=== PATIENT | female | born 1965 | race African-American/Black ===

== ENCOUNTER 2017-07-25 00:07 | Inpatient (IN) | payer OTHER, SELFPAY ==
[2017-07-25] MEDS ORDERED: Midazolam HCl 2 mg/2 ml Vial ONE ×2 (01:48→08:57)
[2017-07-25] MEDS ORDERED: Morphine 4 MG/ML VIAL ONE ×3 (01:48→09:50)
[2017-07-25 01:58] LABS: #Basophils 0.1 thou/uL (0.0-0.2); #Eosinphils 0.1 thou/uL (0.0-0.7); #Lymphocytes 1.2 thou/uL (1.20-3.40); #Monocytes 0.5 thou/uL (0.11-0.59); #Neutrophils 6.3 thou/uL (1.40-6.50); %Eosinophils 1.7 % (0.0-10.0); %Lymphocytes 14.1 % (21.0-51.0); %Monocytes 5.7 % (0.0-10.0); %Neutrophils 77.5 % (42.0-75.0); Hemoglobin 12.7 g/dL (12.0-16.0); Mean Corpuscular HGB CONC 34.1 g/dL (32.0-36.0); Mean Corpuscular Volume 91.1 fl (81.0-99.0); Mean Platelet Volume 6.8 fL (7.4-10.4); Platelet Count 307 thou/uL (130-400); RBC Distribution Width 12.8 % (11.5-14.5); White Blood Cell (WBC) Count 8.2 thou/uL (4.8-10.8)
[2017-07-25 02:04] LABS: PTT 28.6 SEC (22.9-36.1); Prothrombin Time 12.9 SEC (12.0-14.7)
[2017-07-25 02:16] LABS: ALT (SGPT) 50 U/L (8-55); AST (SGOT) 42 U/L (5-34); Alkaline Phosphatase 72 U/L (40-150); Anion Gap 18 mmol/L (10-20); BUN (Urea Nitrogen) 12 mg/dL (9.8-20.1); Bilirubin, Total Less than 0.2 mg/dL (0.2-1.2); Calc. Creatinine Clearance 0 mL/min (70-130); Calcium 9.6 mg/dL (7.8-10.44); Carbon Dioxide 22 mmol/L (22-29); Chloride 106 mmol/L (98-107); Estimated GFR-MDRD Greater than 90; Globulin 3.8 g/dL (2.4-3.5); Glucose 76 mg/dL (70-105); Potassium 4.3 mmol/L (3.5-5.1); Protein, Total 7.8 g/dL (6.0-8.3); Sodium 142 mmol/L (136-145)
[2017-07-25] MEDS ORDERED: Morphine 4 MG/ML VIAL SLOW IVP PRN (05:09)
[2017-07-25] MEDS ORDERED: Sodium Chloride 0.9% 1,000 ML IV SCH (05:11)
[2017-07-25 06:50] VITALS: BMI 36.6
[2017-07-25] MEDS ORDERED: FLU VACC QS2017-18 36 mo. & older 0.5 ML SYRINGE IM ONE (07:00)
--- NOTE | 2017-07-25 07:31 | CON ---
DATE OF CONSULTATION: 07/25/2017 CONSULTING PHYSICIAN: Dr. Bari Foster HISTORY OF PRESENT ILLNESS: We were asked to see patient via the ER and Trauma. The patient was in her normal state of health last night when she was walking down the stairs, she slipped, heard a loud pop in her right lower extremity and had excruciating pain from that point on. She was unable to wa lk. She has had full sensations in that foot since. She did break her distal tibia. No loss of con sciousness, did not hurt or hit anything else in her fall. PAST MEDICAL HISTORY: Positive for hypertension, cholesterol, some right breast CA with mastectomy a nd lymphedema surgeries, right wrist fracture repaired, cyst removal right breast, right breast CA wi th mastectomy and lumpectomy. PSYCHOLOGIC HISTORY: Includes some mild depression. SOCIAL HISTORY: She lives at home. No alcohol, nicotine and drug use. ALLERGIES: No known drug allergies. CURRENT MEDICATIONS: Ferrous sulfate, hydrochlorothiazide, mirtazapine and a cholesterol medication she cannot recall. FAMILY HISTORY: Noncontributory. REVIEW OF SYSTEMS: Healthy other than hypertension, cholesterol. She has no chest pain or shortness of breath. No bowel or bladder issues. The rest of review of systems is negative other than the ri ght lower extremity pain. PHYSICAL EXAMINATION: GENERAL: Well-nourished female resting in bed in no acute distress. Speech clear. Affect pleasant. Answers questions appropriately, is alert and oriented x3. HEENT: Normal exam. NECK: Supple, trachea midline. EXTREMITIES: Moves upper extremities well. Lower extremities; both lower extremities have a little bit of fluid retention, right a little more due to the swelling than the left. She is able to move h er toes and has good sensations to bilateral lower extremities. Right lower extremity is currently s plinted. ASSESSMENT: Fall with ensuing right distal tibial fracture. PLAN: We will keep her n.p.o., plan on getting her to the OR today for ORIF of the right tibia. Naima redman on a nail. I have explained the procedure to the patient. She understands risks and benefits and she is amenable to go forth with surgery.
--- NOTE | 2017-07-25 07:46 | RAD ---
2 VIEWS RIGHT TIBIA AND FIBULA: Date: 07/24/17 HISTORY: Fall. FINDINGS: AP and lateral views right tibia and fibula demonstrate a spiral, posteriorly angulated fracture of t he distal shaft of the right tibia and fibula. The fibular fracture is comminuted and extends into th e distal metaphyseal region of the right fibula. IMPRESSION: Spiral distal tibial diaphyseal and comminuted distal metadiaphyseal right fibula fractures. POS: [facility]
[2017-07-25] MEDS ORDERED: CEFAZOLIN/Water 2 GM/20 ML SYRINGE SLOW IVP SCH (08:00)
[2017-07-25] MEDS ORDERED: Fentanyl 100 MCG/2 ML VIAL ONE ×3 (08:57→13:27)
[2017-07-25] MEDS ORDERED: PROPOFOL 200 MG/20 ML VIAL ONE (09:53)
[2017-07-25] MEDS ORDERED: Lidocaine 1% PF 5 ML VIAL ONE (09:53)
[2017-07-25] MEDS ORDERED: Ketorolac Tromethamine 30 MG/ML VIAL ONE (09:53)
[2017-07-25] MEDS ORDERED: Ondansetron HCl/PF 4 MG/2 ML Vial ONE (09:53)
[2017-07-25] MEDS ORDERED: Glycopyrrolate 0.2 MG/ML 5 ML SYRINGE ONE (09:53)
[2017-07-25] MEDS ORDERED: CEFAZOLIN/Water 2 GM/20 ML SYRINGE ONE (10:49)
--- NOTE | 2017-07-25 10:58 | RAD ---
2 VIEWS RIGHT TIBIA AND FIBULA: Date: 07/25/17 HISTORY: Tibial and fibular fractures. FINDINGS: Comparison made to previous exam from earlier in the day on 07/25/17 Images demonstrates status post casting of the distal tibial and fibular fractures. There is some dec reased posterior angulation of the distal fracture fragments post casting. IMPRESSION: Status post casting of distal tibial and fibular fractures. POS: [facility]
[2017-07-25] MEDS ORDERED: Ondansetron HCl/PF 4 MG/2 ML Vial IVP PRN ×2 (13:10→13:34)
[2017-07-25] MEDS ORDERED: Dextrose 5% in Water 1,000 ML IV PRN (13:10)
[2017-07-25] MEDS ORDERED: hydrALAZINE 20 MG/ML VIAL SLOW IVP PRN (13:10)
[2017-07-25] MEDS ORDERED: Dextrose 50% Abboject 50 ML SYRINGE SLOW IVP PRN (13:10)
[2017-07-25] MEDS ORDERED: Ondansetron ODT 4 MG TAB PO PRN (13:10)
[2017-07-25] MEDS ORDERED: Morphine 2 MG/ML SYRINGE SLOW IVP PRN (13:34)
[2017-07-25] MEDS ORDERED: Promethazine HCl 25 MG/ML VIAL IM PRN (13:34)
[2017-07-25] MEDS ORDERED: Promethazine HCl 25 MG/ML VIAL SLOW IVP PRN (13:34)
--- NOTE | 2017-07-25 13:42 | RAD ---
SIX INTRAOPERATIVE VIEWS RIGHT TIBIA AND FIBULA: Date: 07/25/17 HISTORY: Open reduction and internal fixation. FINDINGS: Six intraoperative images obtained and demonstrate open reduction and internal fixation of distal rig ht tibial fracture, as well as distal fibular fractures. Intramedullary chinyere, screws, and plates are i n good position. IMPRESSION: Open reduction and internal fixation distal right tibial and fibular fractures. POS: [facility]
[2017-07-25] MEDS ORDERED: Morphine 5 mg/5 ml in 0.9% NaCl/PF SYRINGE SLOW IVP PRN (13:45)
--- NOTE | 2017-07-25 14:34 | HP ---
DATE OF ADMISSION: 07/25/2017 REQUESTING PHYSICIAN: Dr. Pastor. ATTENDING PHYSICIAN: Dr. Worthy. CONSULTATIONS: Orthopedics, Dr. Foster. HISTORY OF PRESENT ILLNESS: The patient is a 52-year-old woman who was reportedly walking last night when she lost her footing and slipped and fell. She noted to have immediate pain to her right leg/a nkle area. The patient was brought to the Emergency Department, evaluated, examined and noted to hav e a spiral fracture to her distal tibia and fibula at which time Orthopedics was consulted. It was r ecommended that patient undergo operative intervention at which time we were asked to admit the patie nt. MEDICATIONS: HCTZ, mirtazapine, iron, elevated cholesterol medicine. MEDICATIONS: None. PAST MEDICAL HISTORY: Hypertension, hypercholesterolemia. PAST SURGICAL HISTORY: Mastectomy of right breast and lumpectomy. SOCIAL HISTORY: Patient currently lives at home. She denies drug, alcohol or tobacco use. REVIEW OF SYSTEMS: Ten point review of systems was negative, unless otherwise stated. PHYSICAL EXAMINATION: VITAL SIGNS: Temperature is 98.1, heart rate 96, blood pressure 132/88, respirations 18, and oxygen saturation 100% on room air. GENERAL: The patient is resting comfortably in bed. She is alert and oriented x3. [place] coma sca le is 15. HEENT: Unremarkable. NECK: Nontender. Trachea is midline. No JVD. CHEST: Clear to auscultation with good inspiratory and expiratory effort. HEART: Has regular rate and rhythm. ABDOMEN: Soft, flat, nontender. Pelvis is stable. EXTREMITIES: Neurovascularly intact. Right lower extremity is in a splint applied by the emergency department and it shows capillary refill less than 3 seconds. BACK: Atraumatic and nontender. LABORATORY FINDINGS: White blood cell count 8.2, hemoglobin 12.7, hematocrit 37.4, platelets 307. S odium 142, potassium 4.3, chloride 106, CO2 22, BUN 12, creatinine 0.64, and glucose 76. PT 13, INR 1.0, PTT 28.6. RADIOGRAPHIC REPORTS: Two views of the right tibia and fibula show a spiral distal tibia diaphyseal and comminuted distal meta-diaphyseal right fibular fractures. ASSESSMENT AND PLAN: 1. Status post ground level fall. 2. Right distal tibia and fibula fracture. PLAN: Will be to admit the patient to the surgical floor, undergo evaluation by Orthopedics and most likely open reduction and internal fixation of same today. We will continue pain management, pulmon theresa toilet, gastritis, mechanical DVT prophylaxis. Postoperatively, we will have physical and occupa tional therapy to evaluate the patient. The evaluation, examination, laboratory and radiographic fin lena were discussed with Dr. Worthy this morning.
--- NOTE | 2017-07-25 15:32 | OP ---
DATE OF PROCEDURE: 07/25/2017 OPERATION: Intramedullary nail of right tibia and open reduction internal fixation of right fibula. PREOPERATIVE DIAGNOSIS: Right distal tibia and fibula fracture. POSTOPERATIVE DIAGNOSIS: Right distal tibia and fibula fracture. COMPLICATIONS: None. ESTIMATED BLOOD LOSS: 50 mL SURGEON: Herson Foster M.D. ANESTHESIA: General. IMPLANTS: Synthes tibial nail size 360 mm x 10 mm, Synthes 1/3 tubular plate with small fragment scr ews. INDICATIONS: Ms. Lim is a 52-year-old female who fell last night. She sustained a fracture of the right tibia and fibula. She was indicated for open reduction and internal fixation of the fracture and intramedullary nail to restore anatomic alignment and promote healing. Goal of surgery is to pro mote healing and early mobilization. Risks have been reviewed in detail. DESCRIPTION OF PROCEDURE: Ms. Monte was identified in the preoperative holding area. Her correct e xtremity was marked. She was carried to the operating room. She was positioned supine. General ane sthesia was induced. A multidisciplinary timeout was performed. The right lower extremity was prepp ed and draped in sterile fashion. We began the procedure with intramedullary nail. We made an incision over the patient's anterior kne e. We dissected down through the subcutaneous tissues to the patellar fascia. The patellar tendon w as split. With this, brought this down onto the anterior and superior tibia. We inserted a guidewir e. At this point, we overreamed our K-wire. We then placed a ball-tip guidewire distally across the fracture site centered at the ankle. At this point, we took x-ray images confirming this. We measu red for an appropriate length. Next, we reamed from an 8.5 mm reamer up to a size 11.5 mm. We then passed our 10 mm x 360 mm nail. Two proximal cross lock screws were placed followed by 2 distal cros s lock screws using perfect [place] technique. We took x-ray images once again. At this point, we ma de an incision over the lateral ankle at the fibula fracture. We dissected down through the subcutan eous tissues to the bony level. We exposed the underlying comminuted fibula fracture. We reduced th e fracture back into its anatomic position with a reduction clamp. We visualized this with x-ray. W e then placed a 1/3 tubular plate along the lateral cortex. An 8-hole plate was used. Eight screws were placed. We then again x-rayed and confirmed there were no complications. We thoroughly irrigat ed with copious lavage. We then closed with 0 Vicryl suture, 2-0 Vicryl suture and nylon for the ski n. A sterile dressing was placed. The patient was taken to the recovery room in good condition with out complication at this point.
[2017-07-25] MEDS: traMADol HCl 50 MG TAB PO PRN ×2 (15:43→20:20)
[2017-07-25] MEDS: Sodium Chloride 0.9% 1,000 ML IV SCH ×2 (17:29→21:35)
[2017-07-25] MEDS: CEFAZOLIN/Water 2 GM/20 ML SYRINGE SLOW IVP SCH (20:19)
[2017-07-25] MEDS: Enoxaparin Sodium 40 MG/0.4 ML SYRINGE SC SCH (20:35)
[2017-07-25] MEDS: Ketorolac Tromethamine 30 MG/ML VIAL IVP PRN (22:54)
[2017-07-26] MEDS: CEFAZOLIN/Water 2 GM/20 ML SYRINGE SLOW IVP SCH (04:26)
[2017-07-26] MEDS: traMADol HCl 50 MG TAB PO PRN (04:40)
[2017-07-26] MEDS: Sodium Chloride 0.9% 1,000 ML IV SCH (04:47)
[2017-07-26 06:02] LABS: #Eosinphils 0.1 thou/uL (0.0-0.7); #Lymphocytes 1.3 thou/uL (1.20-3.40); #Monocytes 0.7 thou/uL (0.11-0.59); #Neutrophils 5.2 thou/uL (1.40-6.50); %Basophils 0.5 % (0.0-1.0); %Lymphocytes 17.8 % (21.0-51.0); %Neutrophils 70.6 % (42.0-75.0); Hemoglobin 10.5 g/dL (12.0-16.0); Mean Corpuscular HGB CONC 32.9 g/dL (32.0-36.0); Mean Corpuscular Hemoglobin 30.5 pg (27.0-31.0); Mean Corpuscular Volume 92.9 fl (81.0-99.0); Mean Platelet Volume 7.5 fL (7.4-10.4); Platelet Count 222 thou/uL (130-400); RBC Distribution Width 12.9 % (11.5-14.5); Red Blood Cell (RBC) Count 3.43 mill/uL (4.20-5.40); White Blood Cell (WBC) Count 7.4 thou/uL (4.8-10.8)
[2017-07-26 06:39] LABS: Anion Gap 12 mmol/L (10-20); BUN (Urea Nitrogen) 9 mg/dL (9.8-20.1); Calc. Creatinine Clearance 165 mL/min (70-130); Calcium 8.5 mg/dL (7.8-10.44); Carbon Dioxide 22 mmol/L (22-29); Chloride 106 mmol/L (98-107); Estimated GFR-MDRD Greater than 90; Glucose 77 mg/dL (70-105); Sodium 136 mmol/L (136-145)
[2017-07-26] MEDS: Ketorolac Tromethamine 30 MG/ML VIAL IVP PRN (07:59)
[2017-07-26] MEDS ORDERED: traMADol HCl 50 MG TAB PO PRN ×2 (09:59)
[2017-07-26] MEDS ORDERED: Ibuprofen 600 MG TAB PO SCH (10:00)
[2017-07-26] MEDS ORDERED: Acetaminophen 500 MG TAB PO SCH (10:00)
[2017-07-26] MEDS: Acetaminophen 500 MG TAB PO SCH ×3 (12:41→23:44)
[2017-07-26] MEDS: Ibuprofen 600 MG TAB PO SCH ×2 (14:32→21:06)
[2017-07-26 17:14] LABS: Bilirubin Negative (Negative); Blood, Urine Negative (Negative); Clarity CLOUDY (Clear); Glucose, Urine (Dipstick) Negative (Negative); Leukocyte Negative (Negative); Nitrite Negative (Negative); Protein, Urine (Dipstick) 30 mg/dL (Neg-Trace); Specific Gravity, Urine 1.028 (1.002-1.036); Urobilinogen 0.2 mg/dL (0.2-1.0)
[2017-07-26 17:19] LABS: Bacteria/HPF None Seen HPF (None Seen); Hyaline Casts/LPF 4-6 HYALINE CAST LPF (0-3 Hyaline); Pathc Cast-AUWi Flag 0.94 (0-2.49); WBC/HPF 0-3 HPF (0-3)
[2017-07-26 17:21] LABS: RBC/HPF None Seen HPF (0-3)
--- NOTE | 2017-07-26 18:41 | PRG ---
DATE OF SERVICE: 07/26/2017 ATTENDING PHYSICIAN: Dr. Dean Bravo. This is Seda Crawford, nurse practitioner, dictating a daily progress note for Dr. Dean Bravo. SUBJECTIVE: A 52-year-old woman who had a ground-level fall last p.m. She was brought to the emergency department and noted to have a fracture to her distal tibia and fibula. Dr. Foster, Orthopedics, took the patient to the OR where she underwent IM nail of the right tibia and ORIF of the right fibula. She has had no acute events overnight. Pain has been well controlled. She has not yet worked with PT, OT this morning. OBJECTIVE: VITAL SIGNS: Temperature 98.3, pulse 99, respirations 16, O2 sat 92% room air, blood pressure 136/83. GENERAL: The patient is lying in bed. No acute distress. HEENT: Normocephalic, atraumatic. PULMONARY: Respirations even and unlabored. No respiratory distress. CARDIOVASCULAR: Regular rate and rhythm. ABDOMEN: Soft, nontender, nondistended. EXTREMITIES: Cap refill brisk. Neurovascularly intact. NEUROLOGIC: GCS of 15. PSYCHIATRIC: AO x3. ASSESSMENT: 1. A 52-year-old female status post ground-level fall. 2. Right tibia and fibula fracture. 3. Status post intramedullary nail and ORIF right tibia fibula fracture. PLAN: 1. Begin PT, OT. 2. Change analgesia to scheduled Tylenol and scheduled Motrin. 3. Discontinue IV fluids. 4. Lovenox for DVT prophylaxis. 5. Rehab screen. The patient was seen and examined with Dr. Bravo, attending trauma surgeon, who agrees with the assessment and plan. [facility]
[2017-07-26] MEDS ORDERED: Enoxaparin Sodium 40 MG/0.4 ML SYRINGE SC SCH (21:00)
[2017-07-26] MEDS: Enoxaparin Sodium 40 MG/0.4 ML SYRINGE SC SCH (21:05)
[2017-07-27] MEDS: Acetaminophen 500 MG TAB PO SCH ×3 (05:12→17:43)
[2017-07-27] MEDS: Ibuprofen 600 MG TAB PO SCH ×3 (05:12→22:43)
[2017-07-27] MEDS: traMADol HCl 50 MG TAB PO PRN (08:09)
[2017-07-27] MEDS: traMADol HCl 50 MG TAB PO SCH ×3 (10:41→22:44)
[2017-07-27] MEDS: Senokot S 8.6-50 MG TAB PO SCH ×2 (10:44→20:37)
[2017-07-27] MEDS: Polyethylene Glycol 3350 17 GM Packet PO SCH (10:44)
--- NOTE | 2017-07-27 19:17 | PRG ---
DATE OF SERVICE: 07/27/2017 This is Seda Crawford NP dictating a daily progress note for Dean Bravo DO ATTENDING PHYSICIAN: Dr. Dean Bravo. SUBJECTIVE: A 52-year-old female who had a ground level fall 3 days ago. She has undergone ORIF of the right tibia and fibula. She has had no acute events overnight. Pain has been well controlled. She has been working with PT, OT. OBJECTIVE: VITAL SIGNS: Temperature 98.0, pulse 90, respirations 18, O2 sat 95% on room air, and blood pressure 149/88. HEENT: Normocephalic, atraumatic. PULMONARY: Respirations are even and unlabored. No respiratory distress. CARDIOVASCULAR: Regular rate and rhythm. ABDOMEN: Soft, nontender, and nondistended. EXTREMITIES: Cap refill brisk. Neurovascularly intact. Orthopedic boot to the right foot. She moves all digits. NEUROLOGIC: GCS of 15. Awake, alert, and oriented x3. ASSESSMENT: 1. A 52-year-old female status post ground level fall. 2. Right tibia fibula fracture. 3. Status post intramedullary nail and open reduction and internal fixation of right tibia and fibula fracture. PLAN: 1. Continue PT and OT. 2. Continue current analgesia regimen. 3. Continue regular diet. 4. Lovenox for DVT prophylaxis. 5. Case management consult for rehab placement. The patient was seen and examined with Dr. Bravo, attending trauma surgeon, who agrees with the assessment and plan. [facility]
[2017-07-27] MEDS: Enoxaparin Sodium 40 MG/0.4 ML SYRINGE SC SCH (20:38)
[2017-07-28] MEDS: Acetaminophen 500 MG TAB PO SCH ×5 (00:06→23:24)
[2017-07-28] MEDS: traMADol HCl 50 MG TAB PO SCH ×4 (04:16→21:00)
[2017-07-28] MEDS: Ibuprofen 600 MG TAB PO SCH ×3 (05:20→21:01)
[2017-07-28] MEDS: Polyethylene Glycol 3350 17 GM Packet PO SCH (08:12)
[2017-07-28] MEDS: Senokot S 8.6-50 MG TAB PO SCH ×2 (08:12→20:55)
[2017-07-28] MEDS: Enoxaparin Sodium 40 MG/0.4 ML SYRINGE SC SCH (20:55)
--- NOTE | 2017-07-28 23:09 | PRG ---
DATE OF SERVICE: 07/28/2017 ATTENDING PHYSICIAN: Dr. Dean Bravo. This is Seda Crawford, nurse practitioner, dictating a daily progress note for Dr. Dean Bravo. SUBJECTIVE: A 52-year-old female status post ground level fall 4 days ago. She has undergone ORIF and IM nail of the right tibia, fibula. She has had no acute events overnight. Pain has been well controlled. She has been working with PT, OT. OBJECTIVE: VITAL SIGNS: Temperature 98.3, pulse 80, respirations 16, O2 sat 98% room air, blood pressure 131/72. HEENT: Normocephalic, atraumatic. PULMONARY: Respirations even, unlabored. No respiratory distress. CARDIOVASCULAR: Regular rate and rhythm. ABDOMEN: Soft, nontender, nondistended. EXTREMITIES: Cap refill brisk. Neurovascular intact. Orthopedic boot right foot. Moves all digits well. NEUROLOGIC: GCS 15. Awake, alert, oriented x3. ASSESSMENT: 1. A 52-year-old female status post ground level fall. 2. Right tibia, fibula fracture. 3. Status post intramedullary nail and open reduction internal fixation right tibia, fibula. PLAN: 1. Continue OT, PT. 2. Continue current analgesia regimen. 3. Continue regular diet. 4. Lovenox, deep venous thrombosis prophylaxis. 5. Case management for placement. The patient is amenable to going to nursing home. She initially preferred to go home, however would like to pursue SNF placement at this time. Case management has sent referrals to local SNF. Anticipate the patient will discharge as early as tomorrow if accepted. The patient was seen and examined with Dr. Bravo, attending trauma surgeon, who agrees with the assessment and plan. [facility]
[2017-07-29] MEDS: traMADol HCl 50 MG TAB PO SCH ×4 (03:40→21:17)
[2017-07-29] MEDS: Ibuprofen 600 MG TAB PO SCH ×3 (05:40→21:18)
[2017-07-29] MEDS: Acetaminophen 500 MG TAB PO SCH ×3 (05:40→17:56)
[2017-07-29] MEDS ORDERED: Bisacodyl 10 MG SUPP PR SCH (08:15)
[2017-07-29] MEDS: Polyethylene Glycol 3350 17 GM Packet PO SCH (08:24)
[2017-07-29] MEDS: Senokot S 8.6-50 MG TAB PO SCH ×2 (08:24→21:18)
--- NOTE | 2017-07-29 15:39 | PRG ---
DATE OF SERVICE: 07/29/2017 ATTENDING PHYSICIAN: Dean Bravo, DO This is Seda Crawford, nurse practitioner, dictating a daily progress note for Dr. Dean Bravo. SUBJECTIVE: This is a 52-year-old female status post ground level fall 5 days ago. She is status post ORIF and IM nail of right tibia/fibula. Overnight I received a call that she had fallen in her room. She apparently lost her balance and fell on her bottom. She had no reported injuries and vital signs remained stable. She does not complain of any pain this morning. She is working with PT/OT. OBJECTIVE: VITAL SIGNS: Temperature 98.2, pulse 83, respirations 20, O2 sat 99 on room air , blood pressure 158/112. HEENT: Normocephalic, atraumatic. PULMONARY: Respirations even and unlabored. No respiratory distress. CARDIOVASCULAR: Regular rate and rhythm. ABDOMEN: Soft, nontender, nondistended. EXTREMITIES: Cap refill brisk. Neurovascularly intact. Orthopedic boot right foot. Moves all digits well. NEUROLOGIC: GCS of 15. Awake, alert, oriented x3. ASSESSMENT: 1. A 52-year-old female status post ground level fall. 2. Right tibia/fibula fracture. 3. Status post intramedullary nail and open reduction and internal fixation of right tibia/fibula. 4. In-hospital fall last p.m. PLAN: 1. Continue OT, PT. 2. Continue current analgesia regime. 3. Continue regular diet. 4. Continue Lovenox for DVT prophylaxis. 5. Restart home blood pressure medications. 6. Patient is not funded to go to rehabilitation hospital or [facility]p facility. Case management has been following and sent referrals; however, patient has been denied based on funding. At this time, the patient will plan to go home with home health therapy. She will continue to work with PT, OT to prepare her for transition to home. Anticipate home in the next 1-2 days. The patient was seen and examined with Dr. Bravo, attending trauma surgeon, who agrees with the assessment and plan. [facility]
[2017-07-29] MEDS ORDERED: Losartan/Hydrochlorothiazide 100 mg/25 mg Tablet PO SCH (16:15)
[2017-07-29] MEDS ORDERED: Amlodipine 10 MG TAB PO SCH (16:15)
[2017-07-29] MEDS: Enoxaparin Sodium 40 MG/0.4 ML SYRINGE SC SCH (21:17)
[2017-07-30] MEDS: Acetaminophen 500 MG TAB PO SCH ×3 (00:01→12:00)
[2017-07-30] MEDS: traMADol HCl 50 MG TAB PO SCH ×2 (03:24→10:34)
[2017-07-30] MEDS: Ibuprofen 600 MG TAB PO SCH ×2 (05:44→14:53)
[2017-07-30] MEDS: Senokot S 8.6-50 MG TAB PO SCH (08:19)
[2017-07-30] MEDS: Polyethylene Glycol 3350 17 GM Packet PO SCH (08:19)
[2017-07-30 08:59] VITALS: TEMP 97.9
[2017-07-30] MEDS ORDERED: Amlodipine 10 MG TAB PO SCH (09:00)
[2017-07-30] MEDS ORDERED: Losartan/Hydrochlorothiazide 100 mg/25 mg Tablet PO SCH (09:00)
[2017-07-30 12:33] VITALS: BP 130/87
--- NOTE | 2017-08-31 09:14 | DIS ---
DATE OF ADMISSION: 07/25/2017 DATE OF DISCHARGE: 07/30/2017 ADMITTING PHYSICIAN: Dr. Jonny Worthy. DISCHARGING PHYSICIAN: Dr. Brent Garcia. CONSULTING PHYSICIAN: Dr. Foster, Orthopedics. REASON FOR HOSPITALIZATION: Ground level fall with right leg ankle pain. HOSPITAL DIAGNOSIS: Right distal tibia fibula fracture. PROCEDURE: Intramedullary nail of right tibia and open reduction internal fixation of right fibula on 07/25/2017. SURGEON: Dr. Herson Foster. Please refer to Dr. Foster's operative report for complete details. PATIENT'S DISCHARGE CONDITION: Good. DISPOSITION: Discharged to home. DISCHARGE MEDICATIONS: The patient may resume all home medications as well as aspirin 81 mg oral twice daily, Tylenol No. 3 one to two tablets every 4 hours as needed. ACTIVITY ORDERS: A 25% partial weightbearing to right lower extremity. THERAPY ORDERS: None. DIET: Regular. FOLLOWUP: With Dr. Herson Foster in 2 weeks. BRIEF HISTORY OF HOSPITALIZATION: Ms. Lim is a 52-year-old woman who had a ground level fall with immediate pain to her right leg and ankle area. She was transported to [facility] Emergency Department where she was noted to have a spiral fracture to her distal tibia and fibula. She was admitted to the hospital by Trauma Services. A consult was obtained by Dr. Herson Foster. Dr. Foster took the patient to the OR for repair of her fracture. She had no postoperative complications. She mobilized with physical and occupational therapy and was ultimately cleared for discharge to home with orthopedic weightbearing restrictions. She was discharged to home on postoperative day #5. She is to follow up with Dr. Foster in 2 weeks. There is no need for her to follow up with Trauma Services. The patient was reviewed with Dr. Garcia, attending trauma surgeon, who agreed with the assessment and plan. [facility]
== END 2017-07-30 14:46 | disposition home or self-care (01) | DRG 494 ==
LOC: ERS 00:07 → SURG A 01:00
PROVIDERS: ADMIT Specialist; ATTEND Specialist
PROC: 0QSJ04Z Reposition Right Fibula with Internal Fixation Device, Open Approach (ICD-10-PCS; principal; 2017-07-25)
PROC: 0QHG36Z Insertion of Intramedullary Internal Fixation Device into Right Tibia, Percutaneous Approach (ICD-10-PCS; 2017-07-25)
DX: S82.241A Displaced spiral fracture of shaft of right tibia, initial encounter for closed fracture (principal); E78.00 Pure hypercholesterolemia, unspecified; I10 Essential (primary) hypertension; S82.441A Displaced spiral fracture of shaft of right fibula, initial encounter for closed fracture; W01.0XXA Fall on same level from slipping, tripping and stumbling without subsequent striking against object, initial encounter; Z90.11 Acquired absence of right breast and nipple; W18.30XA Fall on same level, unspecified, initial encounter; Y93.01 Activity, walking, marching and hiking; Y92.230 Patient room in hospital as the place of occurrence of the external cause; Z85.3 Personal history of malignant neoplasm of breast; W10.8XXA Fall (on) (from) other stairs and steps, initial encounter
CPT/HCPCS: 27752; 36415; 76001; 80048; 80053; 81003; 81015; 85025; 85610; 85730; 86850; 86870; 86900; 86901; 86905; 86922; 87077; 87086; 94760; 96374; 96375; 96376; C1713; C1769; G8978-GP-CJ; G8979-GP-CI; G8987-GO-CK; G8988-GO-CI; J1170; J1650; J1885; J2001; J2250; J2270; J2405; J2704; J3010